=== PATIENT | female | born 1960 | race African-American/Black ===

== ENCOUNTER 2017-01-15 09:01 | Day surgery (SDC) | payer BC ==
[2017-01-12 13:09] LABS: Basophils # (auto) 0.1 uL; Eosinophils # (auto) 0.1 uL; Eosinophils % (auto) 1.7 % (0.0-7.0); Hematocrit 43.4 % (36.0-46.0); Hemoglobin 14.5 g/dL (12.2-16.2); Lymphocytes # (auto) 2.7 uL; Mean Corpuscular Hemoglobin 31.2 pg (28.0-32.0); Mean Corpuscular Hgb Conc. 33.5 g/dL (32.0-36.0); Mean Corpuscular Volume 93.2 fL (80.0-100.0); Mean Platelet Volume 9.4 fL (6.9-10.8); Monocytes # (auto) 0.5 uL; Monocytes % (auto) 7.8 % (0.0-12.0); Neutrophils # (auto) 2.5 uL; Neutrophils % (auto) 43.5 % (37.0-80.0); Nucleated Red Blood Cells % 0.1 %; Platelet Count (auto) 222 10^3/uL (140-450); Red Cell Distribution Width 12.5 % (11.8-14.3); White Blood Cell 5.8 10^3/uL (4.4-10.8)
[2017-01-12 13:23] LABS: INR 0.98 (0.9-1.15); Partial Thromboplastin Time 31.7 sec (22.64-33.71); Prothrombin Time 10.7 sec (9.37-12.3)
[~2017-01-15] VITALS: Ht 172.7 cm; Wt 74.8 kg
[~2017-01-15 09:01] MED LIST: ESTR1GEL TD; FLUT1INH6 IN
[2017-01-15] MEDS: fentaNYL CITRATE 100 MCG/2 ML VL ONE ×3 (10:04→10:13)
[2017-01-15] MEDS: MIDAZOLAM HCL 5 MG/ML-1ML VIAL ONE ×3 (10:04→10:13)
[2017-01-15 11:03] VITALS: BP 125/71
[2017-01-15] MEDS ORDERED: SODIUM CHLORIDE LOCK 10 ML ONE (14:49)
[2017-01-15] MEDS ORDERED: fentaNYL CITRATE 100 MCG/2 ML VL ONE (14:49)
[2017-01-15] MEDS ORDERED: MIDAZOLAM HCL 5 MG/ML-1ML VIAL ONE (14:50)
[2017-01-15] MEDS ORDERED: diphenhdrAMINE HCL 50 MG/1 ML VL ONE (14:50)
== END 2017-01-15 11:13 | disposition home or self-care (01) ==
LOC: GI 09:01
PROVIDERS: ATTEND Internal Medicine Gastroenterology
DX: K92.1 Melena (principal); J45.909 Unspecified asthma, uncomplicated; Z90.49 Acquired absence of other specified parts of digestive tract; Z90.710 Acquired absence of both cervix and uterus
CPT/HCPCS: 36415; 45380; 85025; 85610; 85730; J1200; J2250; J3010; J7030; 99152

== ENCOUNTER → 2017-07-02 | Outpatient (CLI) | payer BC ==
[2017-07-02 09:36] LABS: Basophils # (auto) 0 uL; Basophils % (auto) 0.7 % (0.0-2.0); Eosinophils # (auto) 0.1 uL; Eosinophils % (auto) 2.5 % (0.0-7.0); Hematocrit 44.8 % (36.0-46.0); Hemoglobin 15.1 g/dL (12.2-16.2); Lymphocytes # (auto) 2.4 uL; Lymphocytes % (auto) 50.6 % (10.0-50.0); Mean Corpuscular Hemoglobin 30.8 pg (28.0-32.0); Mean Corpuscular Hgb Conc. 33.7 g/dL (32.0-36.0); Mean Corpuscular Volume 91.3 fL (80.0-100.0); Monocytes # (auto) 0.3 uL; Monocytes % (auto) 6.9 % (0.0-12.0); Neutrophils # (auto) 1.8 uL; Neutrophils % (auto) 39.3 % (37.0-80.0); Platelet Count (auto) 235 10^3/uL (140-450); Red Blood Cells 4.91 10^6/uL (4.0-5.20); Red Cell Distribution Width 12.7 % (11.8-14.3); White Blood Cell 4.7 10^3/uL (4.4-10.8)
[2017-07-02 09:52] LABS: INR 0.96 (0.9-1.15); Prothrombin Time 10.5 sec (9.37-12.3)
== END | disposition home or self-care (01) ==
LOC: LAB 09:18
PROVIDERS: ATTEND Internal Medicine Gastroenterology
DX: Z01.812 Encounter for preprocedural laboratory examination (principal)
CPT/HCPCS: 36415; 85025; 85610

== ENCOUNTER 2017-07-05 09:45 | Day surgery (SDC) | payer BC ==
[~2017-07-05] VITALS: Ht 172.7 cm; Wt 77.1 kg
[~2017-07-05 09:45] MED LIST changes: -FLUT1INH6 IN; +LIDOCAINE VISCOUS 2% 15ML UD ONE; +diphenhdrAMINE HCL 50 MG/1 ML VL ONE
[2017-07-05] MEDS: MIDAZOLAM HCL 5 MG/ML-1ML VIAL ONE ×2 (11:20→11:24)
[2017-07-05] MEDS: fentaNYL CITRATE 100 MCG/2 ML VL ONE ×2 (11:20→11:24)
[2017-07-05 12:05] VITALS: BP 108/55
== END 2017-07-05 11:35 | disposition home or self-care (01) ==
LOC: SUR 09:45
PROVIDERS: ATTEND Internal Medicine Gastroenterology
DX: K29.50 Unspecified chronic gastritis without bleeding (principal); E66.9 Obesity, unspecified
CPT/HCPCS: 43239; J1200; J2250; J3010; J7030